=== PATIENT | female | born 1970 | race Caucasian/White ===

== ENCOUNTER → 2017-05-01 | Outpatient (CLI) | payer BC ==
[~2017-05-01] MED LIST: HYDROCHLOROTH12.5 MG PO
== END | disposition home or self-care (01) ==
LOC: NUC 04-02 08:30
DX: K29.30 Chronic superficial gastritis without bleeding (principal); K31.84 Gastroparesis; K21.9 Gastro-esophageal reflux disease without esophagitis; R11.0 Nausea
CPT/HCPCS: 78264; A9541